=== PATIENT | female | born 1980 | race African-American/Black ===

== ENCOUNTER 2017-02-07 15:31 | Emergency (ER) | payer SELFPAY ==
[2017-02-07] MEDS ORDERED: Ketorolac Tromethamine 30 MG/ML VIAL ONE (17:05)
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
== END 2017-02-07 18:09 | disposition home or self-care (01) ==
LOC: ERS 15:31 → EDBD 15:31 → MERGE 15:31 → ERS 18:09
DX: S43.402A Unspecified sprain of left shoulder joint, initial encounter (principal); M54.5 Low back pain; E11.9 Type 2 diabetes mellitus without complications; D64.9 Anemia, unspecified; Z79.84 Long term (current) use of oral hypoglycemic drugs; V43.52XA Car driver injured in collision with other type car in traffic accident, initial encounter
CPT/HCPCS: 72100; 96372; J1885

== ENCOUNTER 2017-02-10 11:25 | Emergency (ER) | payer OTHER, SELFPAY ==
[2017-02-10] MEDS ORDERED: Diazepam 5 MG TAB ONE (12:50)
[2017-02-10] MEDS ORDERED: Ketorolac Tromethamine 60 MG/2 ML VIAL ONE (12:50)
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
== END 2017-02-10 13:42 | disposition home or self-care (01) ==
LOC: ERS 11:25
DX: M62.838 Other muscle spasm (principal); E11.9 Type 2 diabetes mellitus without complications; Z79.84 Long term (current) use of oral hypoglycemic drugs
CPT/HCPCS: 72125; 96372; J1885

== ENCOUNTER 2018-02-17 15:25 | Emergency (ER) | payer BC ==
[2018-02-17] MEDS ORDERED: Ketorolac Tromethamine 60 MG/2 ML VIAL ONE (17:18)
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
--- NOTE | 2018-02-17 18:22 | RAD ---
TWO VIEWS LEFT HIP: 02/17/18 HISTORY: Fall with left hip pain. AP and frogleg views left hip obtained. Two views left hip demonstrates no evidence of left hip fractures, subluxations or bony lesions. Some osteophytes seen along the lateral aspect of the acetabulum. IMPRESSION: No evidence of acute left hip fractures or bony lesions. POS: [facility]
--- NOTE | 2018-02-17 18:23 | RAD ---
THREE VIEWS LEFT SHOULDER: 02/17/18 HISTORY: Fall, left shoulder pain. AP internally, externally, and scapular Y-views left shoulder obtained. Three views left shoulder demonstrates no evidence of left shoulder fractures, subluxations or bony l esions. IMPRESSION: Normal three views left shoulder. POS: [facility]
== END 2018-02-17 17:50 | disposition home or self-care (01) ==
LOC: ERS 15:25
DX: S93.402A Sprain of unspecified ligament of left ankle, initial encounter (principal); T14.8XXA Other injury of unspecified body region, initial encounter; W01.0XXA Fall on same level from slipping, tripping and stumbling without subsequent striking against object, initial encounter
CPT/HCPCS: 96372; J1885